=== PATIENT | male | born 1960 | race Caucasian/White ===

== ENCOUNTER 2017-03-03 18:53 | Emergency (ER) | payer OTHER ==
[2017-03-03 20:25] VITALS: BP 118/82
== END 2017-03-03 20:25 | disposition home or self-care (01) ==
LOC: ED 18:53
DX: J06.9 Acute upper respiratory infection, unspecified (principal)
CPT/HCPCS: J1100; J1885

== ENCOUNTER 2017-05-09 10:46 | Emergency (ER) | payer OTHER ==
[~2017-05-09] VITALS: Ht 170.2 cm; Wt 76.2 kg
[2017-05-09 11:59] LABS: CALCIUM 8.7 mg/dL (8.5-10.1); CARBON DIOXIDE 30.4 mmol/L (21-32); CHLORIDE SERUM 106 mmol/L (98-107); CREATININE SERUM 0.8 mg/dL (0.7-1.3); GFR1 > 60 mL/min; GLUCOSE SERUM 88 mg/dL (74-106); SODIUM SERUM 141 mmol/L (136-145)
[2017-05-09 12:03] LABS: ALBUMIN 3.5 g/dL (3.4-5.0); ALKALINE PHOSPHATASE 79 U/L (46-116); ALT/SGPT 32 U/L (16-63); AST/SGOT 25 U/L (15-37); BILIRUBIN TOTAL 0.3 mg/dL (0.20-1.00); TOTAL PROTEIN, SERUM 7.1 g/dL (6.4-8.2)
[2017-05-09 12:42] LABS: BASOPHIL % 0.4 % (0-2); PLATELET COUNT 164 x10^3mcL (130-400); RED CELL DISTRIBUTION WIDTH 14.2 % (11.5-14.5)
[2017-05-09 13:36] VITALS: BP 127/84
== END 2017-05-09 13:36 | disposition home or self-care (01) ==
LOC: ED 10:46
PROVIDERS: Emergency Medicine
DX: H81.10 Benign paroxysmal vertigo, unspecified ear (principal)
CPT/HCPCS: J7030; Q0092

== ENCOUNTER 2017-11-10 18:05 | Emergency (ER) | payer OTHER ==
[~2017-11-10] VITALS: Ht 170.2 cm; Wt 78.1 kg
[2017-11-10 18:10] VITALS: Ht 170.2 cm; Wt 78.1 kg
[2017-11-10 20:09] LABS: microscopic required? NO
[2017-11-10 20:12] VITALS: BP 130/72
[2017-11-10 20:27] LABS: UA SPECIFIC GRAVITY 1.015 (1.005-1.035); urine erythrocyte NEGATIVE (NEGATIVE)
== END 2017-11-10 20:12 | disposition home or self-care (01) ==
LOC: ED 18:05
PROVIDERS: Emergency Medicine
DX: M54.5 Low back pain (principal)
CPT/HCPCS: J1885

== ENCOUNTER 2019-06-18 23:26 | Emergency (ER) | payer OTHER ==
[~2019-06-18] VITALS: Ht 175.3 cm; Wt 83.0 kg
[2019-06-18 23:35] VITALS: BP 148/84; Ht 175.3 cm; Wt 83.0 kg
== END 2019-06-19 00:15 | disposition home or self-care (01) ==
LOC: ED 23:26
DX: G89.29 Other chronic pain (principal); M54.5 Low back pain; L60.0 Ingrowing nail
CPT/HCPCS: J1885